=== PATIENT | female | born 1970 | race Hispanic/Latino ===

== ENCOUNTER → 2025-08-11 | Outpatient (CLI) | payer BC ==
--- NOTE | 2025-08-12 01:44 | HMCIMG ---
EXAM: MR Left Upper Extremity Without Intravenous Contrast, Shoulder. CLINICAL HISTORY: M75.82 Other shoulder lesions, left shoulder. TECHNIQUE: Multisequence, multiplanar magnetic resonance images of the left shoulder without intravenous contrast. Series acquired: 4 - AX T1 - TR: 488.0 - TE: 9.9 - ET: 4.0 - Thk: 3.0 5 - AX STIR - TR: 3097.0 - TE: 46.1 - ET: 16.0 - Thk: 3.0 6 - COR T2 - TR: 2503.0 - TE: 100.6 - ET: 21.0 - Thk: 3.0 7 - COR STIR - TR: 3135.0 - TE: 37.7 - ET: 16.0 - Thk: 3.0 8 - SAG T2 - TR: 4434.0 - TE: 100.2 - ET: 21.0 - Thk: 3.0 9 - SAG PD FS PROPELLER - TR: 3270.7 - TE: 59.0 - ET: 16.0 - Thk: 3.0 CONTRAST: None. COMPARISON: None provided. FINDINGS: TENDONS: Mild tendinosis of the supraspinatus, infraspinatus, and subscapularis tendons without evidence of tear. Teres minor tendon appears intact. Long head of the biceps tendon is normally located within the bicipital groove. LIGAMENTS: Thickened coracohumeral ligament measuring 1.2 cm. Mild thickening of the inferior glenohumeral ligament complex with associated capsular oedema measuring up to 0.7 cm. JOINTS: Mild glenohumeral joint effusion with minimal fluid in the superior subscapularis recess and subacromial-subdeltoid bursa. Mild degenerative osteoarthritis changes noted at the acromioclavicular joint. CORACOACROMIAL ARCH: Acromion is type II curved. Mild thickening of the coracoacromial ligament. BONES: No acute fracture or focal marrow lesion. Subchondral marrow changes adjacent to the acromioclavicular joint consistent with degenerative change. MUSCLES: Normal bulk and signal intensity without evidence of tear or atrophy. MISCELLANEOUS: No paralabral cyst or significant fluid collection. IMPRESSION: * Thickened coracohumeral ligament and mild thickening of the inferior glenohumeral ligament complex with capsular oedema, findings suggestive of adhesive capsulitis. * Rotator cuff tendinosis involving supraspinatus, infraspinatus, and subscapularis tendons without tear. * Minimal glenohumeral joint and subacromial-subdeltoid bursal effusion. 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 /[place]
== END | disposition home or self-care (01) ==
LOC: RAH 08:50
PROVIDERS: ATTEND Orthopaedic Surgery
DX: M19.012 Primary osteoarthritis, left shoulder (principal); M67.814 Other specified disorders of tendon, left shoulder; M75.82 Other shoulder lesions, left shoulder; M25.412 Effusion, left shoulder; R60.0 Localized edema
CPT/HCPCS: 73221